=== PATIENT | female | born 2000 | race Caucasian/White ===

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

== ENCOUNTER 2022-03-22 13:23 | Emergency (ER) | payer OTHER ==
[~2022-03-22] VITALS: Ht 170.2 cm; Wt 59.7 kg
[~2022-03-22 13:23] MED LIST: AUGM875T28 PO; FLON1SPR NARES; MUCI600T31 PO; NORT10CA2 PO; RIZA5TAB2 PO
[2022-03-22 15:38] LABS: BASO % 0.3 % (0.0-1.0); EOS # 0.3 10^3/uL (0.0-0.5); EOS % 2.7 % (0.0-3.0); HEMATOCRIT 38.6 % (36.0-47.0); HEMOGLOBIN 12.8 g/dl (12.0-15.5); LYMPH # 2.8 10^3/uL (1.5-5.0); LYMPH % 30.1 % (24.0-44.0); MEAN CORPUSCULAR HEMOGLOBIN 29.4 pg (27.0-33.0); MEAN CORPUSCULAR HGB CONC 33.2 g/dl (32.0-36.5); MEAN CORPUSCULAR VOLUME 88.5 fl (80.0-96.0); MONO # 0.8 10^3/uL (0.0-0.8); MONO % 8.3 % (2.0-8.0); NEUTROPHILS # 5.3 10^3/uL (1.5-8.5); NEUTROPHILS % 58.4 % (36.0-66.0); PLATELET COUNT, AUTOMATED 239 10^3/uL (150-450); RED BLOOD COUNT 4.36 10^6/uL (4.00-5.40); WHITE BLOOD COUNT 9.1 10^3/uL (4.0-10.0)
[2022-03-22 15:53] LABS: INR 1.03; PROTHROMBIN TIME 13.7 SECONDS (12.5-14.5)
[2022-03-22 15:54] LABS: PARTIAL THROMBOPLASTIN TIME 30.9 SECONDS (24.8-34.2)
[2022-03-22 16:09] LABS: HCG, SERUM QUALITATIVE NEGATIVE (NEGATIVE)
[2022-03-22 16:18] LABS: BLOOD UREA NITROGEN 13 MG/DL (9-23); CALCIUM LEVEL 9.1 MG/DL (8.5-10.1); CARBON DIOXIDE LEVEL 26 MMOL/L (20-31); CHLORIDE LEVEL 104 MMOL/L (98-107); CREATININE FOR GFR 0.56 MG/DL (0.55-1.30); GLOMERULAR FILTRATION RATE > 60.0 (>60); GLUCOSE, FASTING 82 MG/DL (60-100); POTASSIUM SERUM 3.9 MMOL/L (3.5-5.1); SODIUM LEVEL 139 MMOL/L (136-145)
[2022-03-22] MEDS ORDERED: ANUS2.5C2 TOP (16:36)
[2022-03-22 16:50] VITALS: BP 116/58
== END 2022-03-22 16:55 | disposition home or self-care (01) ==
LOC: M ED 13:23
DX: K64.4 Residual hemorrhoidal skin tags (principal)

== ENCOUNTER → 2022-06-22 | Outpatient (CLI) | payer OTHER ==
[~2022-06-22] MED LIST changes: +ANUS2.5C2 TOP
[2022-06-22 15:50] LABS: HEMATOCRIT 37.2 % (36.0-47.0); HEMOGLOBIN 12.4 g/dl (12.0-15.5); MEAN CORPUSCULAR HGB CONC 33.3 g/dl (32.0-36.5); MEAN CORPUSCULAR VOLUME 89.9 fl (80.0-96.0); PLATELET COUNT, AUTOMATED 235 10^3/uL (150-450); RED BLOOD COUNT 4.14 10^6/uL (4.00-5.40); WHITE BLOOD COUNT 9.8 10^3/uL (4.0-10.0)
[2022-06-22 17:04] LABS: GC DNA AMPLIFICATION NEGATIVE (NEGATIVE)
[2022-06-22 19:04] LABS: HIV 1&2 SCREEN CENTAUR NEGATIVE (NEGATIVE)
[2022-06-22 19:12] LABS: HEPATITIS C VIRUS ABY INDEX 0.1 INDEX (<0.8)
== END ==
LOC: M PLALAB 13:52
PROVIDERS: ATTEND Advanced Practice Midwife
DX: Z34.01 Encounter for supervision of normal first pregnancy, first trimester (principal)

== ENCOUNTER → 2022-06-22 | Outpatient (REF) | payer OTHER | LOC: M PLALAB 13:43 | PROVIDERS: ATTEND Advanced Practice Midwife | DX: Z53.9 Procedure and treatment not carried out, unspecified reason (principal) ==

== ENCOUNTER 2022-07-19 04:31 | Emergency (ER) | payer OTHER ==
[~2022-07-19] VITALS: Ht 170.2 cm; Wt 56.4 kg
[2022-07-19 05:25] LABS: BASO % 0.2 % (0.0-1.0); EOS % 0.4 % (0.0-3.0); HEMATOCRIT 37.2 % (36.0-47.0); HEMOGLOBIN 12.6 g/dl (12.0-15.5); MEAN CORPUSCULAR HEMOGLOBIN 29.7 pg (27.0-33.0); MEAN CORPUSCULAR HGB CONC 33.9 g/dl (32.0-36.5); MEAN CORPUSCULAR VOLUME 87.7 fl (80.0-96.0); MONO # 0.9 10^3/uL (0.0-0.8); MONO % 9.9 % (2.0-8.0); NEUTROPHILS % 77.9 % (36.0-66.0); PLATELET COUNT, AUTOMATED 224 10^3/uL (150-450); RED BLOOD COUNT 4.24 10^6/uL (4.00-5.40)
[2022-07-19 05:37] LABS: BLOOD UREA NITROGEN 7 MG/DL (9-23); CARBON DIOXIDE LEVEL 22 MMOL/L (20-31); CHLORIDE LEVEL 103 MMOL/L (98-107); CREATININE FOR GFR 0.45 MG/DL (0.55-1.30); GLOMERULAR FILTRATION RATE > 60.0 (>60); GLUCOSE, FASTING 95 MG/DL (60-100); POTASSIUM SERUM 3.6 MMOL/L (3.5-5.1); SODIUM LEVEL 135 MMOL/L (136-145)
[2022-07-19] MEDS ORDERED: ONDANSETRON 4MG ORAL DISINTEGRATING TAB PO ONE (06:05)
[2022-07-19] MEDS ORDERED: ONDA4TAB6 PO (06:34)
[2022-07-19 07:22] VITALS: BP 102/61
== END 2022-07-19 07:32 | disposition home or self-care (01) ==
LOC: M ED 04:31
DX: O21.9 Vomiting of pregnancy, unspecified (principal); Z3A.16 16 weeks gestation of pregnancy

== ENCOUNTER → 2022-09-07 | Outpatient (CLI) | payer OTHER ==
[~2022-09-07] MED LIST changes: +ONDA4TAB6 PO
== END ==
LOC: M WHC 11:39
PROVIDERS: ATTEND Specialist
DX: Z34.02 Encounter for supervision of normal first pregnancy, second trimester (principal); Z3A.23 23 weeks gestation of pregnancy

== ENCOUNTER 2022-09-19 02:30 | Outpatient (CLI) | payer OTHER ==
[~2022-09-19] VITALS: Ht 170.2 cm; Wt 64.0 kg
[2022-09-19 02:51] VITALS: BP 114/66
[2022-09-19] MEDS ORDERED: PRENTAB9 PO (02:54)
[2022-09-19] MEDS ORDERED: HOME MED LIST COMPLETE! XX SCH (02:55)
[2022-09-19] MEDS ORDERED: ACETAMINOPHEN 500 MG TAB PO ONE (04:00)
[2022-09-19 04:50] VITALS: BP 87/48
[2022-09-19 04:52] VITALS: BP 111/71
== END 2022-09-19 05:05 | disposition home or self-care (01) ==
LOC: M LDO 02:30
PROVIDERS: ATTEND Obstetrics & Gynecology
DX: O26.892 Other specified pregnancy related conditions, second trimester (principal); M25.59 Pain in other specified joint; Z3A.25 25 weeks gestation of pregnancy
CPT/HCPCS: 59025; 81001; 87086; G0463

== ENCOUNTER → 2022-09-21 | Outpatient (CLI) | payer OTHER ==
[~2022-09-21] MED LIST changes: +PRENTAB9 PO
[2022-09-21 17:38] LABS: HEMATOCRIT 34.8 % (36.0-47.0); HEMOGLOBIN 11.4 g/dl (12.0-15.5); MEAN CORPUSCULAR HEMOGLOBIN 29.8 pg (27.0-33.0); MEAN CORPUSCULAR HGB CONC 32.8 g/dl (32.0-36.5); MEAN CORPUSCULAR VOLUME 91.1 fl (80.0-96.0); PLATELET COUNT, AUTOMATED 270 10^3/uL (150-450); RED BLOOD COUNT 3.82 10^6/uL (4.00-5.40); WHITE BLOOD COUNT 13.6 10^3/uL (4.0-10.0)
[2022-09-21 19:01] LABS: GC DNA AMPLIFICATION NEGATIVE (NEGATIVE)
== END ==
LOC: M PLALAB 14:29
PROVIDERS: ATTEND Specialist
DX: Z34.02 Encounter for supervision of normal first pregnancy, second trimester (principal)

== ENCOUNTER 2022-11-01 11:43 | Outpatient (CLI) | payer OTHER ==
[~2022-11-01] VITALS: Ht 170.2 cm; Wt 68.1 kg
[2022-11-01 12:03] VITALS: BP 114/60; O2SAT 97
== END 2022-11-01 12:25 | disposition home or self-care (01) ==
LOC: M LDO 11:43
PROVIDERS: ATTEND Specialist
DX: O47.03 False labor before 37 completed weeks of gestation, third trimester (principal); Z3A.31 31 weeks gestation of pregnancy
CPT/HCPCS: 59025; G0463

== ENCOUNTER → 2022-11-28 | Outpatient (REF) | payer OTHER | LOC: M PLALAB 08:45 | PROVIDERS: ATTEND Obstetrics & Gynecology | DX: Z36.85 Encounter for antenatal screening for Streptococcus B (principal); Z3A.36 36 weeks gestation of pregnancy ==

== ENCOUNTER → 2022-12-19 | Outpatient (CLI) | payer OTHER ==
[2022-12-19 18:07] LABS: ALBUMIN 2.7 G/DL (3.2-5.2); ALKALINE PHOSPHATASE 210 U/L (46-116); ALT/SGPT 14 U/L (7.0-40); AST/SGOT 12 U/L (<34); BILIRUBIN,DIRECT < 0.1 MG/DL (<0.4); BILIRUBIN,TOTAL 0.4 MG/DL (0.3-1.2); TOTAL PROTEIN 6.1 G/DL (5.7-8.2)
== END ==
LOC: M PLALAB 14:51
PROVIDERS: ATTEND Obstetrics & Gynecology
DX: Z34.03 Encounter for supervision of normal first pregnancy, third trimester (principal)

== ENCOUNTER 2023-01-04 13:15 | Inpatient (IN) | payer OTHER ==
[~2023-01-04] VITALS: Ht 170.2 cm; Wt 72.1 kg
[2023-01-04] VITALS (32 sets, daily range): BP systolic 100–148; BP diastolic 57–91
[2023-01-04] MEDS ORDERED: OXYTOCIN INJ 10UNITS/ML 1ML VIAL IM PRN (14:20)
[2023-01-04] MEDS ORDERED: CARBOPROST TROMETHAMINE 250 MCG/ML AMP IM PRN (14:20)
[2023-01-04] MEDS ORDERED: OXYTOCIN DRIP 30 UNITS in IV 1 EA IV PRN ×4 (14:20)
[2023-01-04] MEDS ORDERED: LACTATED RINGER'S 1000 ML IV ONE (14:20)
[2023-01-04] MEDS ORDERED: METHYLERGONOVINE MALEATE 0.2MG/ML 1ML VIAL IM PRN (14:20)
[2023-01-04] MEDS ORDERED: LIDOCAINE 1% MDV 20ML VIAL INFIL PRN (14:20)
[2023-01-04] MEDS ORDERED: TRANEXAMIC ACID INJection 1,000 MG in NS 100 ML IV PRN (14:20)
[2023-01-04] MEDS ORDERED: LR 1,000 ML IV SCH ×2 (14:20→17:40)
[2023-01-04] MEDS ORDERED: miSOPROStol 50MCG 1/2 TABLET PO ONE (14:20)
[2023-01-04 14:56] LABS: HEMATOCRIT 37.9 % (36.0-47.0); HEMOGLOBIN 11.5 g/dl (12.0-15.5); MEAN CORPUSCULAR HEMOGLOBIN 23.3 pg (27.0-33.0); MEAN CORPUSCULAR HGB CONC 30.3 g/dl (32.0-36.5); MEAN CORPUSCULAR VOLUME 76.9 fl (80.0-96.0); PLATELET COUNT, AUTOMATED 288 10^3/uL (150-450); RED BLOOD COUNT 4.93 10^6/uL (4.00-5.40); WHITE BLOOD COUNT 11.1 10^3/uL (4.0-10.0)
[2023-01-04] MEDS ORDERED: diphenhydrAMINE 50MG/ML VIAL IV PRN (16:10)
[2023-01-04] MEDS ORDERED: NALOXONE INJ 0.4MG/1ML VIAL IV PRN (16:10)
[2023-01-04] MEDS ORDERED: LR 500 ML IV PRN (16:10)
[2023-01-04] MEDS ORDERED: EPIDURAL/PCA KEYS XX PRN (16:10)
[2023-01-04] MEDS ORDERED: FENTANYL/ROPIVACAINE/NACL BAG 100 ML EPIDURAL SCH (16:10)
[2023-01-04] MEDS ORDERED: ePHEDrine SULFATE 25 MG/5 ML(5MG/ML) SYRINGE IVP PRN (16:10)
[2023-01-04] MEDS: ONDANSETRON 4MG 2ML VIAL IV PRN ×2 (17:47→23:54)
[2023-01-04] MEDS ORDERED: OXYTOCIN DRIP 30 UNITS in IV 1 EA IV SCH ×2 (19:00→22:00)
[2023-01-04] MEDS ORDERED: DIBUCAINE 1% OINTMENT 30GM TOP PRN (22:00)
[2023-01-04] MEDS ORDERED: ANUSOL HC CREAM 30GM TOP PRN (22:00)
[2023-01-04] MEDS ORDERED: ACETAMINOPHEN TAB 650MG DOSE (2X325MG) PO PRN (22:00)
[2023-01-04] MEDS ORDERED: RHOGAM 300MCG (1500IU) INJ IM SCH (22:00)
[2023-01-04] MEDS ORDERED: DOCUSATE SODIUM 100MG CAPSULE PO PRN (22:00)
[2023-01-04] MEDS ORDERED: METHYLERGONOVINE MALEATE 0.2 MG TAB PO PRN (22:00)
[2023-01-05 02:00] VITALS: BP 139/86; O2SAT 98
[2023-01-05] MEDS: IBUPROFEN 600MG TAB PO PRN ×2 (02:15→08:17)
[2023-01-05 05:46] VITALS: BP 119/61; O2SAT 98
[2023-01-05] MEDS: PRENATAL VITAMINS CHEWABLE TABLET PO SCH (08:17)
[2023-01-05 09:15] VITALS: BP 119/61; TEMP 97.2; O2SAT 98
[2023-01-05] MEDS: ACETAMINOPHEN 500 MG TAB PO PRN ×2 (12:49→19:32)
[2023-01-05] MEDS: IBUPROFEN 800 MG TAB PO PRN (16:07)
[2023-01-05 18:00] VITALS: BP 142/84; O2SAT 96
[2023-01-05] MEDS ORDERED: MORPHINE 4 MG/ML 1ML VIAL IV ONE (21:30)
[2023-01-05] MEDS ORDERED: PROMETHAZINE 25MG/ML 1ML VIAL IV PRN (21:30)
[2023-01-06] MEDS: IBUPROFEN 800 MG TAB PO PRN (04:02)
[2023-01-06 05:54] VITALS: BP 109/59; O2SAT 99
[2023-01-06] MEDS: PRENATAL VITAMINS CHEWABLE TABLET PO SCH (08:41)
[2023-01-06] MEDS: ACETAMINOPHEN 500 MG TAB PO PRN (08:41)
[2023-01-06] MEDS ORDERED: MEASLES,MUMPS,RUBELLA VACCINE INJ (MMR-II) SC.IMMUN ONE (09:00)
== END 2023-01-06 13:25 | disposition home or self-care (01) | DRG 541 ==
LOC: M LDO 13:15 → M LDI 13:52 → M OBS 01-05 01:30
PROVIDERS: ADMIT Advanced Practice Midwife; ATTEND Advanced Practice Midwife
PROC: 10E0XZZ Delivery of Products of Conception, External Approach (ICD-10-PCS; principal; 2023-01-04)
PROC: 10D17Z9 Manual Extraction of Products of Conception, Retained, Via Natural or Artificial Opening (ICD-10-PCS; 2023-01-04)
PROC: 3E033VJ Introduction of Other Hormone into Peripheral Vein, Percutaneous Approach (ICD-10-PCS; 2023-01-04)
DX: O42.02 Full-term premature rupture of membranes, onset of labor within 24 hours of rupture (principal); O48.0 Post-term pregnancy; Z3A.41 41 weeks gestation of pregnancy; O69.1XX0 Labor and delivery complicated by cord around neck, with compression, not applicable or unspecified; O70.0 First degree perineal laceration during delivery; O73.1 Retained portions of placenta and membranes, without hemorrhage; Z37.0 Single live birth

== ENCOUNTER 2023-03-06 11:10 | Emergency (ER) | payer MEDICAID, OTHER ==
[~2023-03-06] VITALS: Ht 170.2 cm; Wt 63.4 kg
[2023-03-06] MEDS ORDERED: BOOSTRIX VACCINE (TETANUS/DIPHTH/ACEL. PERTUSSIS) 0.5ML SYR IM.IMMUN ONE (13:40)
[2023-03-06] MEDS ORDERED: DERMABOND TOPICAL SKIN ADHESIVE TOP ONE (13:40)
[2023-03-06] MEDS ORDERED: ACETAMINOPHEN TAB 650MG DOSE (2X325MG) PO ONE (13:40)
[2023-03-06 14:45] VITALS: BP 126/87; TEMP 97.8; O2SAT 98
== END 2023-03-06 14:47 | disposition home or self-care (01) ==
LOC: M ED 11:10
DX: S01.81XA Laceration without foreign body of other part of head, initial encounter (principal); S09.90XA Unspecified injury of head, initial encounter; Y92.9 Unspecified place or not applicable; Y93.9 Activity, unspecified